=== PATIENT | male | born 1965 | race African-American/Black ===

== ENCOUNTER 2021-11-12 14:54 | Emergency (ER) | payer MEDICAID, OTHER ==
[~2021-11-12] VITALS: Ht 185.4 cm; Wt 72.0 kg
[2021-11-12 15:00] VITALS: BP 144/87
[2021-11-12] MEDS ORDERED: HYDROCODONE/ACETAMINOPHEN 5/325MG TABLET PO ONE (17:00)
[2021-11-12] MEDS ORDERED: LIDO1ADH23 TP (17:47)
[2021-11-12] MEDS ORDERED: HYDR-4001 MT (17:47)
[2021-11-12] MEDS ORDERED: AMOX-494 MT (19:16)
== END 2021-11-12 18:00 | disposition home or self-care (01) ==
LOC: ER 14:54
DX: S20.211A Contusion of right front wall of thorax, initial encounter (principal); J98.11 Atelectasis; W01.0XXA Fall on same level from slipping, tripping and stumbling without subsequent striking against object, initial encounter; Y93.89 Activity, other specified; Y92.018 Other place in single-family (private) house as the place of occurrence of the external cause
CPT/HCPCS: 71101; 99283

== ENCOUNTER 2024-01-24 13:07 | Emergency (ER) | payer MEDICAID, OTHER ==
[~2024-01-24] VITALS: Ht 185.4 cm; Wt 71.0 kg
[~2024-01-24 13:07] MED LIST: AMOX-494 MT; HYDR-4001 MT; LIDO1ADH23 TP
[2024-01-24 13:12] VITALS: PULSE 110; O2SAT 98
[2024-01-24 13:27] VITALS: BP 159/89; RESP 16; TEMP 98; O2SAT 100
[2024-01-24 14:05] LABS: BASOPHILS % 0.9 % (0.0-2.0); EOSINOPHILS % 5.3 % (0.0-5.0); HEMATOCRIT. 42.1 % (42.0-52.0); HEMOGLOBIN. 13.7 g/dL (14.0-18.0); LYMPHOCYTES % 44.9 % (20.0-50.0); MEAN CORPUSCULAR HEMOGLOBIN 30.4 pg (28.0-32.0); MEAN CORPUSCULAR HGB CONC 32.6 g/dL (31.0-37.0); MEAN CORPUSCULAR VOLUME 93.3 fL (80.0-94.0); MONOCYTES % 11.4 % (2.0-8.0); NEUTROPHILS % 37.5 % (40.0-76.0); PLATELET 299 x1000/uL (130-400); RED BLOOD CELL COUNT 4.51 mill/uL (4.7-6.1); WHITE BLOOD COUNT 4.3 x1000/uL (4.5-11.0)
[2024-01-24 14:12] LABS: CHLORIDE 106 mEq/L (98-107); SODIUM 139 mEq/L (136-145)
[2024-01-24 14:13] LABS: CALCIUM 9.1 mg/dL (8.7-10.4); CARBON DIOXIDE 23 mEq/L (21-32)
[2024-01-24 14:18] LABS: CREATININE 0.8 mg/dL (0.6-1.3); GLUCOSE 92 mg/dL (70-105); UREA NITROGEN BLOOD 7 mg/dL (9-23)
[2024-01-24 14:20] LABS: ALANINE AMINOTRANSFERASE 21 IU/L (10-49); ALBUMIN 4.1 g/dL (3.2-4.8); ASPARTATE AMINOTRANSFERASE 40 IU/L (<34); BILIRUBIN DIRECT 0.1 mg/dL (<=3.0); BILIRUBIN TOTAL 0.4 mg/dL (0.1-1.0); PROTEIN TOTAL 6.9 g/dL (6.0-8.3)
[2024-01-24 14:25] LABS: TROPONIN I HIGH SENSITIVITY < 4 ng/L (3.0-53)
== END 2024-01-24 14:01 | disposition home or self-care (01) ==
LOC: ER 13:07
DX: Z00.00 Encounter for general adult medical examination without abnormal findings (principal)
CPT/HCPCS: 80076; 80048; 83690; 85025; 84484; 36415; 99283; Z7610 ×2